=== PATIENT | female | born 1985 | race African-American/Black ===

== ENCOUNTER 2017-09-23 02:57 | Emergency (ER) | payer SELFPAY ==
[2017-09-23 03:06] VITALS: BMI 27.2
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
[2017-09-23] MEDS ORDERED: ADACEL TDaP IM ONE ×2 (03:38→03:40)
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
[2017-09-23 05:47] VITALS: BP 122/83
== END 2017-09-23 05:40 | disposition home or self-care (01) ==
LOC: ER 02:57
DX: S43.401A Unspecified sprain of right shoulder joint, initial encounter (principal); S63.501A Unspecified sprain of right wrist, initial encounter; Y04.0XXA Assault by unarmed brawl or fight, initial encounter; Y92.9 Unspecified place or not applicable
CPT/HCPCS: 73060; 73130; 90471; 99283